=== PATIENT | male | born 1940 | race Caucasian/White ===

== ENCOUNTER → 2016-07-09 | Outpatient (CLI) | payer OTHER ==
--- NOTE | 2016-07-10 05:59 | PAP/PSG TECHNICIAN REPORT ---
[facility] [employer] Blender Operator Polysomnogram Report Study name: None Report date: 07/10/2016 Study date: 07/09/2016 Referring Physician: Maki Chapa CRNP Name: DILAN KEENAN Interpreting Physician: Cisco Jacobsen M.D. Date of : 1940 [employer] Blender Operator: Venus Llamas RPSGT. Sex: Male Age: 75 StudyType: PSG Weight: 261 lbs Height: 75 years, Height 5' 11" Neck Circum:17.75 BMI: 36.4 Medications: Acetaminophen 325mg, Artificial Tears, Vit D# 400unit, Cyanocobalamin 500mcg, Ferrous Sulfate 325mg, Furosemide 80mg, Lisinopril 5mg, Metolazone 2.5mg, Metoprolol Tartate 50mg, Omeprazole 20mg, Potassium Chloride 20MEQ, Warfarin 5mg Patient History Study started on room air with no ETCO2 monitoring in room #6. 75 yr old male here tonight for a diagnostic psg. He has been diagnosed with CHF in July of 2015. He complains of EDS, snoring, difficulty falling asleep and waking frequently at night. He also has dizziness at times and has shortness of breath. He has HTN. His neck circ=17.75inches. Parameters Monitored NPSG: E1-M2, E2-M1, Fp1-M2, Fp2-M1, F3-M2, F4-M2, F4-M1, C3-M2, C4-M2, C4-M1, O1-M2, O2-M2, O2-M1, T3-M2, T4-M1, P3-M2, P4-M1, CHIN1, CHIN2, HR, EKG, Legs, PFLOW, SNOR, FLOW, CFLOW, Tidal Volume, THOR, ABDO, SpO2, PLTH, CPRESS, ETCO2 Wave, ETCO2, pH Sleep Architecture Sleep Stages Time at Lights Off 9:32:47 PM STAGES Time (min.) TST (%) Time at Lights On 5:34:47 AM Wake 266.5 -- Total Recording Time (TRT) 482.00 min. N1 34.0 16 Total Sleep Period (TSP) 469.0 min. N2 126.0 58 Total Sleep Time (TST) 215.5min. N3 31.0 14 Awake Time 266.5 min. REM 24.5 11 Wake after Sleep Onset 253.5 min. Sleep Efficiency (SE) 45 % Sleep Onset Latency (SERVANDO) 13.0 min. Number of Stage 1 Shifts None Awakenings 41 Stage Changes 150 Number of REM periods 5 REM 24.5 11 REM Latency 214.5 min. NREM 191.0 89 Body Position Analysis Supine Right Left Side Prone Vertical Total Sleep Time (min.) 299.2 0.0 149.5 149.50 0.0 0.0 Total Sleep Time (%) 31% 0% 69% 69 0% N/A% Total Sleep Time REM (min.) 0.0 0.0 24.5 None 0.0 0.0 Total Sleep Time NREM (min.) 66.0 0.0 125.0 None 0.0 0.0 Intermittent Wake (min.) 233.2 0.0 33.3 None 0.0 0.0 Total Sleep Period (%) 61% None None None None None Arousals Myoclonus (PLM) * Events Count Index Events Count Index Spontaneous 3 1 Events Awake (PLMW) 695 156.5 Respiratory 10 3.3 Events Asleep w/ Arousal (PLMA) 46 12.8 PLM 43 13 Events Asleep w/o Arousal (PLMS) 228 63.5 Snoring 7 2 Total Asleep 274 76.3 Total 62 17 Total 969 121 Respiratory Analysis * CA OA MA CH H RERA Total Count 0 0 0 0 22 1 22 Index 0.0 0.0 0.0 0 6.1 0 6.4 Mean Duration 0.0 0.0 0.0 0.00 23.8 26.3 23.9 Longest Duration 0.0 0.0 0.0 0.00 0.0 26.3 48.4 Respiratory Event Summary Total Supine ~Supine Right Left Prone REM NREM Apneas Count 0 0 0 N/A 0 N/A 0 0 Index 0.0 0 0 N/A 0.0 N/A 0 0 Hypopneas (4% Desat) Count 22 10 12 N/A 12 N/A 2 20 Index 6.1 9.1 5 N/A 4.8 N/A 4.9 6.3 Apneas & All Hypopneas Count 22 10 12 N/A 12 N/A 2 20 Index 6.1 9 5 N/A 5 N/A 4.9 6.3 Respiratory Events (Crew Chief+All Hyp+RERA) Count 22 10 13 N/A 13 N/A 2 20 Index 6.4 9 5 N/A 5.2 N/A 4.9 6.6 Respiratory Related Arousal Count 10 10 6 N/A 6 N/A 1 11 Index 3.3 5 2 N/A 2 N/A 2 3 Snoring Analysis Supine Right Left Prone REM NREM Total Snore duration 6.6 min Snores count 71 N/A 238 N/A 1 308 309 Snore mean duration 1.3 Sec Snores index 65 N/A 96 N/A 2.4 96.8 86.0 TST with snoring (%) 3.1% Desaturation Event Summary: Minimum %SpO2 Event Count Mean/Min/Max Duration(sec.) Desaturation Index % Time In Bed > 90 75 33.3 / 5.3 / 59.8 12.6 76.2 86 - 90 11 30.8 / 6.0 / 56.0 6.0 23.4 81 - 85 0 N/A 0.0 0.4 76 - 80 0 N/A 0.0 0.0 71 - 75 0 N/A 0.0 0.0 66 - 70 0 N/A 0.0 0.0 61 - 65 0 N/A 0.0 0.0 56 - 60 0 N/A 0.0 0.0 51 - 55 0 N/A 0.0 0.0 < 50 0 N/A 0.0 0.0 Total REM NREM Awake <50% 0.0 min. 0.0 min. 0.0 min. 0.0 min. 51 - 60% 0.0 min. 0.0 min. 0.0 min. 0.0 min. 61 - 70% 0.0 min. 0.0 min. 0.0 min. 0.0 min. 71 - 80% 0.1 min. 0.0 min. 0.0 min. 0.1 min. 81 - 90% 111.5 min. 11.3 min. 62.7 min. 37.5 min. 91 - 100% 357.9 min. 13.2 min. 127.0 min. 217.7 min. Average 92 91 92 92 Minimum SpO2 78 84 81 78 Desaturation Event Index 9.7 12.2 14.5 7.0 # Desat. Events below 89% 27 4 14 9 Time(%) with Saturation below 89% 3.7 1.2 1.6 1.0 Time(min.) with Saturation below 89% 17.6 5.5 7.3 4.8 Time (mins) REM (mins) NREM (mins) % of TST SpO2 Below 90% 34 5 N29 18.4 SpO2 Below 88% 10 0 0 2 Heart Rate Analysis Min (bpm) Max (bpm) Average (bpm) Awake 32 145 81 NREM 52 161 79 REM 64 96 79 Overall 52 161 79 Supplemental O2 Values Minimum O2 level: None Value Start Time End Time Tetry[employer] Blender Operator Comments Mr. Keenan slept in the left and supine positions. Cardiac arrhythmia and PLM's noted, please see print outs. No bruxism noted. Snoring was noted and scored as a 2 on a scale of 1 through 5. (0=no snoring, 5=snoring loud enough to be heard through a closed door or down the [address]aney way). He awoke to use the restroom 1 time during the night. He stated that this was a normal night for him. The final report will be interpreted and signed by a sleep physician. The completed physician report will then be placed in the patient medical record. Therapy (cm H2O) 0 TIB (min.) 482.0 TST (min.) 215.5 Sleep Onset (min.) 13.0 REM Onset From Sleep (min.) 214.5 Sleep Efficiency % 45 Wakefulness (%) 55 Wakefulness (min.) 266.5 NREM 1 (%) 16 NREM 1 (min.) 34.0 NREM 2 (%) 58 NREM 2 (min.) 126.0 NREM 3 (%) 14 NREM 3 (min.) 31.0 REM (%) 11 REM (min.) 24.5 # Arousals 62 Arousal Index 17 # Snore 309 Snore Index 86.0 AHI 6.1 AHI Supine 9 AHI Non-Supine 5 NREM AHI 6.3 REM AHI 4.9 RDI 6.4 # Obstructive Apnea 0 # Central Apnea 0 # Mixed Apnea 0 # Hypopneas 22 RERAs 1 Total Respiratory Events 35 Time Below SpO2 89% (min.) 12.8 Mean NREM SpO2 (%) 92 Mean REM SpO2 (%) 91 Mean Sleep SpO2 (%) 91 Min NREM SpO2 (%) 81 Min REM SpO2 (%) 84 Position Supine (min.) 299.2 Position Non-supine (min.) 149.5 LM Index Sleep 76.3 LM Index NREM 84.2 LM Index REM 14.7 Mean Heart Rate (bpm) 79 Min Heart Rate (bpm) 52
--- NOTE | 2016-07-10 23:42 | POLYSOMNOGRAPH REPORT ---
CLINICAL DATA: A 75-year-old male with BMI of 36.4, referred by ALTON Glasgow, of the [place] [facility] for evaluation of possible sleep apnea. He was diagnosed with CHF in 07/2015. He has excessive daytime sleepiness, snoring, difficulty falling asleep, and frequent awakenings. SLEEP ARCHITECTURE: Total sleep period was 269 minutes. Total sleep time was 215.5 minutes divided between 191 minutes of non-REM sleep and 24.5 minutes of REM sleep. Sleep onset latency was 13 minutes. REM latency was delayed at 214.5 minutes. Sleep efficiency was severely reduced at 45%. Wake after sleep onset was markedly elevated at 253.5 minutes. Sleep consisted of stage N1 16%, N2 58%, N3 14%, and REM 11%. AROUSAL DATA: 62 arousals were recorded for an index of 17 per hour. 43 were due to PLM events. PLM DATA: Significantly elevated limb movements during sleep were noted consistent with PLMD. There were 274 limb movements during sleep noted for an index of 76.3 per hour with arousal index of 12.8 per hour. RESPIRATORY DATA: Mild sleep apnea was documented. The AHI was 6.1. The RDI was 6.4. There were 22 hypopneic episodes. The mean duration of hypopnea was 23.8 seconds. There was 1 RERA, 26.3 seconds in duration. OXIMETRY DATA: Nocturnal hypoxemia was seen. Oxygen merari was 81% during non-REM sleep. Mean saturation was 92%. Time below 88% was 10 minutes. EKG: Heart rates ranged from 52-96 beats per minute. PROCESS ARTIST'S COMMENTS: The patient slept in left and supine positions. Snoring was mild, rated 2 on a scale of 1-5. IMPRESSION: Mild sleep apnea/hypopnea with an AHI of 6.1 and an RDI of 6.4 with mild nocturnal hypoxemia associated with significant leg movements during sleep. RECOMMENDATIONS: The patient may benefit from a repeat sleep study with CPAP if clinically indicated. KAMARI
== END | disposition home or self-care (01) ==
LOC: C.NEUR 21:00
PROVIDERS: ATTEND Nurse Practitioner Family
DX: R53.83 Other fatigue (principal)

== ENCOUNTER → 2016-10-06 | Outpatient (CLI) | payer OTHER ==
--- NOTE | 2016-10-07 06:14 | PAP/PSG TECHNICIAN REPORT ---
[facility] Medical Billing Service Polysomnogram Report Study name: None Report date: 10/07/2016 Study date: 10/06/2016 Referring Physician: Maki Chapa CRNP Name: DILAN KEENAN Interpreting Physician: Cisco Jacobsen M.D. Date of : 1940 Medical Billing Service: Everett Lyn RPSGT. Sex: Male Age: 76 StudyType: PSG PAP Weight: 261 lbs Height: 76 years, Height 5' 11" BMI: 36.4 Medications: Acetaminophen 325mg, Artificial Tears, Vit D# 400unit, Cyanocobalamin 500mcg, Ferrous Sulfate 325mg, Furosemide 80mg, Lisinopril 5mg, Metolazone 2.5mg, Metoprolol Tartate 50mg, Omeprazole 20mg, Potassium Chloride 20MEQ, Warfarin 5mg Patient History PATIENT HAD A SLEEP STUDY DONE IN JUNE OF 2016. HE WAS POSITIVE WITH MILD LIZA WITH AN AHI OF 6.1/HR. HE IS HERE TODAY FOR A CPAP TITRATION. RM 8 Parameters Monitored NPSG: E1-M2, E2-M1, Fp1-M2, Fp2-M1, F3-M2, F4-M2, F4-M1, C3-M2, C4-M2, C4-M1, O1-M2, O2-M2, O2-M1, T3-M2, T4-M1, P3-M2, P4-M1, CHIN1, CHIN2, HR, EKG, Legs, PFLOW, SNOR, FLOW, CFLOW, Tidal Volume, THOR, ABDO, SpO2, PLTH, CPRESS, ETCO2 Wave, ETCO2, pH Sleep Architecture Sleep Stages Time at Lights Off 10:09:36 PM STAGES Time (min.) TST (%) Time at Lights On 5:30:06 AM Wake 167.5 -- Total Recording Time (TRT) 441.00 min. N1 25.0 9 Total Sleep Period (TSP) 433.5 min. N2 169.5 62 Total Sleep Time (TST) 273.0min. N3 30.5 11 Awake Time 167.5 min. REM 48.0 18 Wake after Sleep Onset 160.5 min. Sleep Efficiency (SE) 62 % Sleep Onset Latency (SERVANDO) 7.0 min. Number of Stage 1 Shifts None Awakenings 33 Stage Changes 92 Number of REM periods 2 REM 48.0 18 REM Latency 137.0 min. NREM 225.0 82 Body Position Analysis Supine Right Left Side Prone Vertical Total Sleep Time (min.) 269.0 0.0 125.5 125.50 0.0 0.0 Total Sleep Time (%) 54% 0% 46% 46 0% N/A% Total Sleep Time REM (min.) 30.5 0.0 17.5 None 0.0 0.0 Total Sleep Time NREM (min.) 117.0 0.0 108.0 None 0.0 0.0 Intermittent Wake (min.) 121.5 0.0 46.0 None 0.0 0.0 Total Sleep Period (%) 60% None None None None None Arousals Myoclonus (PLM) * Events Count Index Events Count Index Spontaneous 15 3 Events Awake (PLMW) 274 98.1 Respiratory 2 0.7 Events Asleep w/ Arousal (PLMA) 18 4.0 PLM 16 4 Events Asleep w/o Arousal (PLMS) 253 55.6 Snoring 2 0 Total Asleep 271 59.6 Total 34 7 Total 545 74 Respiratory Analysis * CA OA MA CH H RERA Total Count 0 0 0 0 15 2 15 Index 0.0 0.0 0.0 0 3.3 0 3.7 Mean Duration 0.0 0.0 0.0 0.00 23.3 18.5 22.7 Longest Duration 0.0 0.0 0.0 0.00 0.0 19.0 42.2 Respiratory Event Summary Total Supine ~Supine Right Left Prone REM NREM Apneas Count 0 0 0 N/A 0 N/A 0 0 Index 0.0 0 0 N/A 0.0 N/A 0 0 Hypopneas (4% Desat) Count 15 13 2 N/A 2 N/A 9 6 Index 3.3 5.3 1 N/A 1.0 N/A 11.3 1.6 Apneas & All Hypopneas Count 15 13 2 N/A 2 N/A 9 6 Index 3.3 5 1 N/A 1 N/A 11.3 1.6 Respiratory Events (Gasoline Engine Assembler+All Hyp+RERA) Count 15 15 2 N/A 2 N/A 9 6 Index 3.7 6 1 N/A 1.0 N/A 11.3 2.1 Respiratory Related Arousal Count 2 15 0 N/A 0 N/A 0 3 Index 0.7 1 0 N/A 0 N/A 0 1 Snoring Analysis Supine Right Left Prone REM NREM Total Snore duration 2.1 min Snores count 62 N/A 10 N/A 21 51 72 Snore mean duration 1.7 Sec Snores index 25 N/A 5 N/A 26.3 13.6 15.8 TST with snoring (%) 0.8% Desaturation Event Summary: Minimum %SpO2 Event Count Mean/Min/Max Duration(sec.) Desaturation Index % Time In Bed > 90 51 30.1 / 6.8 / 79.6 7.3 96.8 86 - 90 1 15.8 / 15.8 / 15.8 4.5 3.1 81 - 85 0 N/A 0.0 0.1 76 - 80 0 N/A 0.0 0.0 71 - 75 0 N/A 0.0 0.0 66 - 70 0 N/A 0.0 0.0 61 - 65 0 N/A 0.0 0.0 56 - 60 0 N/A 0.0 0.0 51 - 55 0 N/A 0.0 0.0 < 50 0 N/A 0.0 0.0 Total REM NREM Awake <50% 0.0 min. 0.0 min. 0.0 min. 0.0 min. 51 - 60% 0.0 min. 0.0 min. 0.0 min. 0.0 min. 61 - 70% 0.0 min. 0.0 min. 0.0 min. 0.0 min. 71 - 80% 0.0 min. 0.0 min. 0.0 min. 0.0 min. 81 - 90% 13.9 min. 8.1 min. 2.6 min. 3.2 min. 91 - 100% 418.1 min. 39.9 min. 222.4 min. 155.8 min. Average 93 92 93 93 Minimum SpO2 81 84 87 81 Desaturation Event Index 6.9 11.3 2.7 12.5 # Desat. Events below 89% 6 4 1 1 Time(%) with Saturation below 89% 0.7 0.6 0.0 0.1 Time(min.) with Saturation below 89% 2.9 2.6 0.1 0.2 Time (mins) REM (mins) NREM (mins) % of TST SpO2 Below 90% 14 7 N7 2.0 SpO2 Below 88% 4 0 0 1 Heart Rate Analysis Min (bpm) Max (bpm) Average (bpm) Awake 50 104 81 NREM 56 101 79 REM 57 107 80 Overall 56 107 79 Supplemental O2 Values Minimum O2 level: None Value Start Time End Time Medical Billing Service Comments Mr. Keenan slept in the right and supine positions. Irregular EKG noted at times. Leg movements noted. No bruxism noted. CPAP was initiated at +4 CMH2O and up-titrated to an optimal level of +9 CMH2O, which nearly eliminated all respiratory events and snoring. A Resmed Mirage Quattro full face size large mask was used during titration Mr. Keenan awoke to use the restroom 1 time during the night. Mr. Keenan stated I slept as well as I do when I am in my own bed. The final report will be interpreted and signed by a sleep physician. The completed physician report will then be placed in the patient medical record. Therapy Event: Therapy (cm H20) 4 5 7 8 9 Total Time at Pressure (min.) 61.2 85.1 7.0 9.3 278.0 TST at Pressure (min.) 23.7 56.1 7.0 9.3 177.0 # Periods 1 1 1 1 1 Sleep Onset (min.) 7.0 0.0 0.0 0.0 0.0 REM Onset (min.) N/A 82.8 0.0 0.0 0.0 Sleep Efficiency % 38 65 100 100 63 Wakefulness (%) 61.3 34.1 0.0 0.0 36.3 Wakefulness (min.) 37.5 29.0 0.0 0.0 101.0 NREM 1 (%) 9.8 6.5 0.0 0.0 4.9 NREM 1 (min.) 6.0 5.5 0.0 0.0 13.5 NREM 2 (%) 28.9 42.1 0.0 0.0 41.7 NREM 2 (min.) 17.7 35.8 0.0 0.0 116.0 NREM 3 (%) 0.0 14.7 0.0 0.0 6.5 NREM 3 (min.) 0.0 12.5 0.0 0.0 18.0 REM (%) 0.0 2.7 100.0 100.0 10.6 REM (min.) 0.0 2.3 7.0 9.3 29.5 # Arousals 8 13 0 1 12 Arousal Index 20.2 13.9 0.0 6.5 4.1 # Snore 16 24 2 9 21 Snore Index 40.5 25.7 17.2 58.2 7.1 AHI 10.1 1.1 17.2 19.4 1.7 AHI Supine 10.1 1.1 17.2 19.4 3.5 AHI Non-Supine N/A N/A N/A N/A 1.0 NREM AHI 10.1 0.0 N/A N/A 0.8 REM AHI N/A 26.6 17.2 19.4 6.1 RDI 15.2 1.1 17.2 19.4 1.7 # Obstructive 0 0 0 0 0 # Central Ap 0 0 0 0 0 # Mixed 0 0 0 0 0 # Hypopneas 4 1 2 3 5 RERAS 2 0 0 0 0 Total Respiratory Events 6 1 2 3 5 Time Below SpO2 89.00% (min.) 0.0 1.2 1.1 0.0 0.4 Mean NREM SpO2 (%) 93 92 N/A N/A 93 Mean REM SpO2 (%) N/A 89 91 92 93 Mean Sleep SpO2 (%) 93 92 91 92 93 Min NREM SpO2 (%) 89 89 N/A N/A 87 Min REM SpO2 (%) N/A 84 87 89 88 Position Supine (min.) 23.7 56.1 7.0 9.3 51.5 Position Non-supine (min.) 0.0 0.0 0.0 0.0 125.5 LM Index Sleep 50.6 111.3 25.7 19.4 47.8 LM Index NREM 50.6 111.5 N/A N/A 51.3 LM Index REM N/A 106.3 25.7 19.4 30.5 Mean Heart Rate (bpm) 86 83 83 82 76 Min Heart Rate (bpm) 68 62 69 65 56
--- NOTE | 2016-10-07 16:49 | POLYSOMNOGRAPH REPORT ---
CLINICAL DATA: A 76-year-old male with BMI of 36.4 referred by ALTON Glasgow, of the [place] for CPAP titration study. He had a baseline study done June 2016 which showed mild sleep apnea with an AHI of 6.1. SLEEP ARCHITECTURE: Total sleep period was 433.5 minutes. Total sleep time was 273 minutes divided between 225 minutes of non-REM sleep and 48 minutes of REM sleep. Sleep onset latency was 7 minutes. REM latency was 137 minutes. Sleep efficiency was 62%. Wake after sleep onset was elevated at 160.5 minutes. Sleep consisted of stage N1 9%, N2 62%, N3 11%, REM 18%. AROUSAL DATA: Thirty-four arousals recorded for an index of 7 per hour. PLM DATA: Severely elevated limb movements during sleep were noted. There were 271 limb movements during sleep noted for an index of 59.6 per hour with arousal index of 4 per hour. RESPIRATORY DATA: The AHI was 3.3. There were 15 hypopneic episodes. The mean duration of hypopnea was 23.3 seconds. OXIMETRY DATA: Transient hypoxemia was seen. Oxygen merari was 84% during REM. The mean saturation was 92%. Time below 88% was 4 minutes. EKG: Heart rates ranged from 56-107 beats per minute. Occasional irregular rhythms were noted. REFRIGERATION MANAGER'S COMMENTS AND TREATMENT SUMMARY: The patient slept in the right and supine positions. A ResMed Mirage Quattro full face size large mask was used. The patient was started on CPAP and was titrated up to 9 cm of water pressure. At his final pressure setting, the patient slept for 177 minutes with an AHI of 1.7. IMPRESSION: Mild sleep apnea/hypopnea corrected with CPAP 9 cm of water pressure, ResMed Mirage Quattro full face size large mask. The patient also had significant PLMD. RECOMMENDATIONS: The patient could be started on the above noted treatment regimen and seen back in followup within 90 days to document efficacy and compliance. If symptoms continue, treatment of PLMD may be needed. MTDD
== END | disposition home or self-care (01) ==
LOC: C.NEUR 20:00
PROVIDERS: ATTEND Internal Medicine Pulmonary Disease
DX: R53.83 Other fatigue (principal); R06.83 Snoring

== ENCOUNTER → 2016-10-20 | Outpatient (CLI) | payer OTHER ==
[~2016-10-20] VITALS: Ht 180.3 cm; Wt 124.4 kg
[2016-10-20 13:08] VITALS: BP 127/79; PULSE 120; Ht 180.3 cm; Wt 124.4 kg
== END | disposition home or self-care (01) ==
LOC: C.NEUR 12:42
PROVIDERS: ATTEND Internal Medicine Pulmonary Disease
DX: G47.33 Obstructive sleep apnea (adult) (pediatric) (principal); I48.91 Unspecified atrial fibrillation; Z86.79 Personal history of other diseases of the circulatory system; G47.61 Periodic limb movement disorder; E66.9 Obesity, unspecified; G47.34 Idiopathic sleep related nonobstructive alveolar hypoventilation

== ENCOUNTER → 2017-01-12 | Outpatient (CLI) | payer OTHER ==
[~2017-01-12] VITALS: Ht 180.3 cm; Wt 122.7 kg
[2017-01-12 13:24] VITALS: BP 101/70; PULSE 97; Ht 180.3 cm; Wt 122.7 kg
== END | disposition home or self-care (01) ==
LOC: C.NEUR 12:25
PROVIDERS: ATTEND Physician Assistant Medical
DX: G47.33 Obstructive sleep apnea (adult) (pediatric) (principal); G47.34 Idiopathic sleep related nonobstructive alveolar hypoventilation; I48.91 Unspecified atrial fibrillation; E66.9 Obesity, unspecified; G47.61 Periodic limb movement disorder